=== PATIENT | male | born 1945 | race Two or more races ===

== ENCOUNTER 2024-04-03 12:09 | Emergency (ER) | payer OTHER ==
[~2024-04-03] VITALS: Ht 154.9 cm; Wt 68.0 kg
[2024-04-03 12:10] VITALS: BP 164/98; TEMP 98.1; O2SAT 99
== END 2024-04-03 13:14 | disposition home or self-care (01) ==
LOC: ER 12:20
DX: H02.89 Other specified disorders of eyelid (principal)